=== PATIENT | female | born 1955 | race Caucasian/White ===

== ENCOUNTER → 2018-06-25 | Day surgery (SDC) | payer OTHER ==
[~2018-06-25] MED LIST: ASPIR 8181 MG PO; EFFEXOR XR150 MG PO; GABAPENTIN600 MG PO; LOSARTAN-HCTZ1 EAC2 PO; METOPROLOL SUCC50 MG PO; OSTERA TABLET1 EACH PO; PROVASTATIN PO; ZANTAC150 M3 PO
== END | disposition home or self-care (01) ==
LOC: ADM 06-23 07:00 → CIR.AMB 07:00
DX: K64.8 Other hemorrhoids (principal); K64.4 Residual hemorrhoidal skin tags